=== PATIENT | female | born 1955 | race Caucasian/White ===

== ENCOUNTER 2016-11-20 08:28 | Inpatient (IN) | payer OTHER ==
[~2016-11-20] VITALS: Ht 154.9 cm; Wt 63.1 kg
[~2016-11-20 08:28] MED LIST: NORC7.5T PO; [UNRECOGNIZED DRUG - OTHER]
[2016-11-20 08:30] VITALS: BP 117/78; PULSE 113; RESP 18; TEMP 98.3; O2SAT 100
[2016-11-20 09:00] VITALS: BP 134/91; PULSE 108; RESP 18; TEMP 98.3; O2SAT 98
[2016-11-20 09:31] LABS: AUTOMATED NEUTROPHIL # 6.1 TH/MM3 (1.8-7.7); BASOPHIL # 0.1 TH/MM3 (0-0.2); BASOPHIL % 0.7 % (0.0-2.0); EOSINOPHIL # 0.1 TH/MM3 (0-0.4); HEMATOCRIT 45.8 % (35.0-46.0); HEMO FLAGS DIFF FINAL; LYMPH % 10.4 % (9.0-44.0); LYMPHOCYTE # 0.8 TH/MM3 (1.0-4.8); MEAN CELL VOLUME 95.9 FL (80.0-100.0); MEAN CORPUSCULAR HEMOGLOBIN 31.6 PG (27.0-34.0); MONO % 5.5 % (0.0-8.0); NEUT % 82.4 % (16.0-70.0); PLATELET COUNT 161 TH/MM3 (150-450); RED BLOOD COUNT 4.77 MIL/MM3 (4.00-5.30); RED CELL DISTRIBUTION WIDTH 13.4 % (11.6-17.2); WHITE BLOOD COUNT 7.4 TH/MM3 (4.0-11.0)
[2016-11-20 09:41] LABS: ANION GAP 7 MEQ/L (5-15); AST (GOT) 21 U/L (15-37); BLOOD UREA NITROGEN 9 MG/DL (7-18); CHLORIDE 100 MEQ/L (98-107); GLOMERULAR FILTRATION RATE 47 ML/MIN (>89); POTASSIUM 5.1 MEQ/L (3.5-5.1); SODIUM (NA) 137 MEQ/L (136-145)
[2016-11-20 09:43] LABS: ALKALINE PHOSPHATASE 73 U/L (45-117); ALT (GPT) 39 U/L (10-53); TOTAL BILIRUBIN ADULT 0.4 MG/DL (0.2-1.0)
[2016-11-20] MEDS ORDERED: TETANUS/DIPHTHERIA TOXOID ADULT 0.5 ML VIAL IM ONE (12:30)
--- NOTE | 2016-11-20 12:30 | PD ---
HPI Chief Complaint: Psychiatric Symptoms Time Seen by Provider: 12:30 Travel History International Travel<30 days: No Contact w/Intl Traveler<30days: No Traveled to known affect area: No History of Present Illness HPI 60-year-old female presents to the emergency department voluntarily for psychiatric evaluation. Patient states she has been depressed for "a long as I can remember". She states that things that she has done wrong in the past keep going through her head which she states is hearing voices. She states that "I am a bad person". Patient will not elaborate on what she has done in the past. She states that she has thoughts of hurting herself. She reports taking a bottle of an [id number] sleeping pill 2 days ago, but states "they did nothing to me". When asked to have Tylenol or aspirin in it, she says "I don't think so, but I don't know". Patient denies any medical problems or taking any prescribed medications. Patient states that she drinks alcohol approximately 3- 4 days a week and states she can drink "up to 7 beers at a time". She denies any tobacco use, but does smoke marijuana. When asked the patient has any medical complaints, she states that she tripped and fell 2 days ago and has ecchymosis and abrasion to her left anterior knee. She also has a small abrasion to her right anterior knee. She denies any loss of range of motion, but states she has pain to the left knee. She denies hitting her head or losing consciousness. She denies any neck pain or back pain. No chest pain or abdominal pain. No nausea or vomiting. She states her tetanus immunization is not up-to-date. PFSH Past Medical History Anemia: Yes Anxiety: No Depression: No Cancer: No Cardiovascular Problems: No Endocrine: No Genitourinary: No Immune Disorder: No Musculoskeletal: No Neurologic: No Psychiatric: No Reproductive: No Respiratory: No Past Surgical History Abdominal Surgery: No Cardiac Surgery: No Section: Yes Ear Surgery: No Endocrine Surgery: No Eye Surgery: No Genitourinary Surgery: No Gynecologic Surgery: Yes (D&C) Oral Surgery: No Pacemaker: No Thoracic Surgery: No Social History Alcohol Use: Yes (3-4x weekly) Tobacco Use: No Substance Use: Yes (marijuana) Allergies-Medications (Allergen,Severity, Reaction): Coded Allergies: Codeine (Verified Allergy, Severe, VOMITING, 09/12/12) Reported Meds & Prescriptions Reported Meds & Active Scripts Active Reported [place] 7.5/325 (Hydrocodone-Acetaminophen) 7.5 Mg/325 Mg Tab 1-2 Tab PO Q4HPRN [Estrovin] Review of Systems Except as stated in HPI: all other systems reviewed are Neg General / Constitutional: No: Fever, Chills Eyes: No: Foreign Body Sensation HENT: No: Headaches, Lightheadedness Cardiovascular: No: Chest Pain or Discomfort, Irregular Rhythm, Tachycardia, Diaphoresis Respiratory: No: Cough, Shortness of Breath, Wheezing Gastrointestinal: No: Nausea, Vomiting, Abdominal Pain, Hematemesis, Hematochezia, Constipation Genitourinary: No: Dysuria Skin: Positive Other (abrasion) Neurologic: No: Weakness, Dizziness, Syncope, Headache, Change in Mentation Psychiatric: Positive: Depression, Suicidal Ideations Physical Exam Narrative GENERAL: Well-developed well-nourished female patient, afebrile. SKIN: Warm and dry. Patient has superficial abrasion noted to the right and left anterior knees. She has ecchymosis to the left anterior knee as well. HEAD: Normocephalic. Atraumatic. EYES: No scleral icterus. No injection or drainage. NECK: Supple, trachea midline. No JVD or lymphadenopathy. CARDIOVASCULAR: Regular rate and rhythm without murmurs, gallops, or rubs. RESPIRATORY: Breath sounds equal bilaterally. No accessory muscle use. Lungs sounds are clear to auscultation. GASTROINTESTINAL: Abdomen soft, non-tender, nondistended. MUSCULOSKELETAL: No cyanosis, or edema. Patient has full flexion-extension of the left knee, but has tenderness to palpation over the left anterior knee. BACK: Nontender without obvious deformity. No CVA tenderness. PSYCHIATRIC: No delusional thought processes. No hallucinations. Patient is tearful. Data Data Last Documented VS Vital Signs Date Time Temp Pulse Resp B/P Pulse Ox O2 Delivery O2 Flow Rate FiO2 11/20/16 09:00 98.3 108 18 134/91 98 Room Air Orders Complete Blood Count With Diff (11/20/16 08:59) Comprehensive Metabolic Panel (11/20/16 08:59) Urinalysis - C+S If Indicated (11/20/16 08:59) Psych Screen (11/20/16 08:59) Drug Screen, Random Urine (11/20/16 08:59) Alcohol (Ethanol) (11/20/16 08:59) Diet Regular Basic (11/20/16 Lunch) Knee, Complete (4vws) (11/20/16 ) Salicylates (Aspirin) (11/20/16 12:26) Tetanus/Diphtheria Tox Adult (Tetanus/Di (11/20/16 12:30) Tylenol (Acetaminophen) (11/20/16 09:12) Admit To Inpatient Psych (11/20/16 ) Vital Signs (Adult) RUFINO.Q12H.E (11/20/16 12:36) Activity Oob Ad Kirsten (11/20/16 12:36) Lorazepam (Ativan) (11/20/16 12:45) Lorazepam Inj (Ativan Inj) (11/20/16 12:45) Lorazepam (Ativan) (11/20/16 12:45) Lorazepam Inj (Ativan Inj) (11/20/16 12:45) Acetaminophen (Tylenol) (11/20/16 12:45) Magnesium Hydroxide Liq (Milk Of Magnesi (11/20/16 12:45) Al-Mag Hy-Si 40-40-4 Mg/Ml Liq (Mag-Al P (11/20/16 12:45) Nicotine 21 Mg Patch.24 Hr (Habitrol 21 (11/20/16 12:45) Basic Metabolic Panel (Bmp) (11/21/16 06:00) Lipid Profile (11/21/16 06:00) Hemoglobin (Hgb) A1c (11/21/16 06:00) Admit To Inpatient Psych (11/20/16 ) Vital Signs (Adult) RUFINO.Q12H.E (11/20/16 12:41) Activity Oob Ad Kirsten (11/20/16 12:41) Admit Order (Ed Use Only) (11/20/16 12:41) Labs Laboratory Tests Test 11/20/16 11/20/16 09:12 12:15 White Blood Count 7.4 TH/MM3 Red Blood Count 4.77 MIL/MM3 Hemoglobin 15.1 GM/DL Hematocrit 45.8 % Mean Corpuscular Volume 95.9 FL Mean Corpuscular Hemoglobin 31.6 PG Mean Corpuscular Hemoglobin 33.0 % Concent Red Cell Distribution Width 13.4 % Platelet Count 161 TH/MM3 Mean Platelet Volume 9.3 FL Neutrophils (%) (Auto) 82.4 % Lymphocytes (%) (Auto) 10.4 % Monocytes (%) (Auto) 5.5 % Eosinophils (%) (Auto) 1.0 % Basophils (%) (Auto) 0.7 % Neutrophils # (Auto) 6.1 TH/MM3 Lymphocytes # (Auto) 0.8 TH/MM3 Monocytes # (Auto) 0.4 TH/MM3 Eosinophils # (Auto) 0.1 TH/MM3 Basophils # (Auto) 0.1 TH/MM3 CBC Comment DIFF FINAL Differential Comment Sodium Level 137 MEQ/L Potassium Level 5.1 MEQ/L Chloride Level 100 MEQ/L Carbon Dioxide Level 30.0 MEQ/L Anion Gap 7 MEQ/L Blood Urea Nitrogen 9 MG/DL Creatinine 1.18 MG/DL Estimat Glomerular Filtration 47 ML/MIN Rate Random Glucose 157 MG/DL Calcium Level 9.5 MG/DL Total Bilirubin 0.4 MG/DL Aspartate Amino Transf 21 U/L (AST/SGOT) Alanine Aminotransferase 39 U/L (ALT/SGPT) Alkaline Phosphatase 73 U/L Total Protein 7.9 GM/DL Albumin 4.3 GM/DL Salicylates Level LESS THAN 1.7 MG/DL Acetaminophen Level LESS THAN 2.0 MCG/ML Ethyl Alcohol Level LESS THAN 3 MG/DL Urine Color LIGHT-YELLOW Urine Turbidity CLEAR Urine pH 5.5 Urine Specific [place] 1.003 Urine Protein NEG mg/dL Urine Glucose (UA) NEG mg/dL Urine Ketones NEG mg/dL Urine Occult Blood NEG Urine Nitrite NEG Urine Bilirubin NEG Urine Urobilinogen LESS THAN 2.0 MG/DL Urine Leukocyte Esterase NEG Urine RBC 1 /hpf Urine WBC 1 /hpf Urine Bacteria RARE /hpf Urine Mucus FEW /lpf Microscopic Urinalysis Comment CULT NOT INDICATED Urine Opiates Screen NEG Urine Barbiturates Screen NEG Urine Amphetamines Screen NEG Urine Benzodiazepines Screen NEG Urine Cocaine Screen NEG Urine Cannabinoids Screen NEG MDM Medical Decision Making Medical Screen Exam Complete: Yes Emergency Medical Condition: Yes Medical Record Reviewed: Yes Interpretation(s) left knee x-ray - CONCLUSION: Negative exam. Differential Diagnosis Depression versus anxiety versus suicidal ideation versus bipolar disorder versus schizophrenia versus knee contusion versus knee fracture versus overdose Narrative Course 60-year-old female presents to the emergency department for evaluation depression and suicidal ideations. She does state that she took a bottle of some [id number]-[id number] sleeping aid 2 days ago, but states that she feels fine after taking it. Patient does report ecchymosis and abrasion to the left anterior knee and mild pain as well. Patient is slightly tachycardic on exam, but most likely due to anxiety. Tetanus immunization is updated. X-ray of the left knee is ordered and pending. CBC, CMP, alcohol level, UDS, UA, salicylate level, Tylenol level are ordered and pending. CBC shows no acute abnormalities. CMP shows creatinine 1.18, glucose 157. Alcohol level is less than 3. UDS is negative. Salicylate level is less than 1.7. Acetaminophen level is less than 2.0. UA shows no acute infection. X- ray of the left knee is negative. Patient is medically cleared for psychiatric screening and disposition. Mental health screening discussed with the patient. Psychiatric screen ordered. Additional Instructions: Patient is medically cleared for psychiatric screening and disposition. Condition: Stable Carmenza Pinzon Nov 20, 2016 12:30
[2016-11-20] MEDS ORDERED: LORazepam 2 MG/ML VIAL IM PRN ×2 (12:45)
[2016-11-20] MEDS ORDERED: ALUMINUM/MAGNESIUM/SIMETH 30 ML CUP PO PRN (12:45)
[2016-11-20] MEDS ORDERED: MAGNESIUM HYDROXIDE SUSP 30 ML CUP PO PRN (12:45)
[2016-11-20] MEDS ORDERED: ACETAMINOPHEN 325 MG TAB PO PRN (12:45)
[2016-11-20] MEDS ORDERED: LORazepam 0.5 MG TAB PO PRN (12:45)
[2016-11-20 12:50] LABS: ACETAMINOPHEN LESS THAN 2.0 MCG/ML (10.0-30.0)
[2016-11-20 12:50] LABS: BACTERIA, URINE RARE /hpf; BLOOD, URINE NEG (NEG); GLUCOSE,URINE NEG (NEG); KETONE, URINE NEG (NEG); MUCUS URINE FEW /lpf (OCC); NITRITE,URINE NEG (NEG); PH, URINE 5.5 (5.0-8.5); URINE COLOR LIGHT-YELLOW (YELLW/STRAW)
[2016-11-20 12:51] LABS: COMMENT (UR) CULT NOT INDICATED; CULTURE IF INDICATED CULT NOT INDICATED
[2016-11-20 12:57] LABS: AMPHETAMINE, URINE NEG (NEG); BARBITURATES, URINE NEG (NEG); COCAINE, URINE NEG (NEG)
[2016-11-20] MEDS: NICOTINE 21 MG/24 HR PATCH T-DERMAL SCH (13:15)
[2016-11-20 14:06] VITALS: BP 134/91; PULSE 108; RESP 18; O2SAT 98
--- NOTE | 2016-11-20 14:25 | RADRPT ---
EXAM DATE/TIME: 11/20/2016 13:05 [facility] COMPARISON: No previous studies available for comparison. INDICATIONS : Left knee pain after falling. Pt. has skin abrasions. MEDICAL HISTORY : None. SURGICAL HISTORY : None. ENCOUNTER: Initial ACUITY: 3 days PAIN SCORE: 0/10 LOCATION: Left knee. FINDINGS: Four view examination of the left knee demonstrates no evidence of fracture or dislocation. Bony min eralization is normal. The articular surfaces are intact. The suprapatellar soft tissues have a nor mal configuration. CONCLUSION: Negative exam. Ej Nam MD on November 20, 2016 at 14:23 Board Certified Radiologist. This report was verified electronically.
[2016-11-20 15:19] VITALS: BP 142/82; PULSE 88; RESP 18; TEMP 98.1; O2SAT 96
[2016-11-20] MEDS: LORazepam 1 MG TAB PO PRN ×2 (16:05→21:35)
[2016-11-20 17:29] VITALS: BP 124/77; PULSE 100; RESP 16; TEMP 97.5; O2SAT 98
[2016-11-21 04:00] VITALS: BP 153/89; PULSE 87; RESP 18; TEMP 98.3; O2SAT 94
[2016-11-21 08:17] LABS: ANION GAP 5 MEQ/L (5-15); BICARBONATE 31.6 MEQ/L (21.0-32.0); BLOOD UREA NITROGEN 8 MG/DL (7-18); CHLORIDE 103 MEQ/L (98-107); GLOMERULAR FILTRATION RATE 75 ML/MIN (>89); HDL CHOLESTEROL 114.3 MG/DL (40.0-60.0); LDL CHOLESTEROL 108 MG/DL (0-99); POTASSIUM 4.5 MEQ/L (3.5-5.1); SODIUM (NA) 140 MEQ/L (136-145)
[2016-11-21] MEDS: NICOTINE 21 MG/24 HR PATCH T-DERMAL SCH (08:33)
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
[2016-11-21] MEDS: LORazepam 1 MG TAB PO PRN ×2 (13:39→20:55)
[2016-11-21 17:06] LABS: HEMOGLOBIN A1a 1.1 %; HEMOGLOBIN A1b 1.5 %; HEMOGLOBIN Ao 85.8 %; HEMOGLOBIN P3 3.7 %
[2016-11-21 19:34] VITALS: BP 146/69; PULSE 90; RESP 18; TEMP 98.3; O2SAT 99
[2016-11-21] MEDS: FLUoxetine HCL 10 MG CAP PO SCH (20:40)
[2016-11-22 06:28] VITALS: BP 105/71; PULSE 110; RESP 18; O2SAT 95
[2016-11-22] MEDS: NICOTINE 21 MG/24 HR PATCH T-DERMAL SCH (09:00)
--- NOTE | 2016-11-22 14:54 | HHI.PYPN ---
Subjective Remarks Continues to be depressed and is tolerating Prozac adequately thus far. Anxiety is helped by Ativan. Continues to have obsessive thoughts and suicidal thoughts. Review of Systems Except as stated in HPI: all other systems reviewed are Neg Objective Alert: Yes [place]: Person, Place, Date, Situation Mood: Calm, Depressed Affect: Restricted Memory Intact: Immediate, Recent, Remote Hallucinations: Auditory Delusions: No Delusion Type: Other Suicidal: Ideation Homicidal: Ideation Insight/Judgement Impaired. Vitals/IOs Vital Signs Date Time Temp Pulse Resp B/P Pulse Ox O2 Delivery O2 Flow Rate FiO2 11/22/16 06:28 110 18 105/71 95 11/21/16 19:34 98.3 11/20/16 14:06 Room Air Intake and Output 11/21/16 11/21/16 11/22/16 08:00 16:00 00:00 Intake Total 240 ml 360 ml Balance 240 ml 360 ml Assessment & Plan Problem List: (1) Severe major depression, single episode, with psychotic features ICD Code: F32.3 Assessment & Plan Estimated LOS: 5 days. Days patient continues to be markedly depressed and obsessive with auditory hallucinations. Will plan to increase dose of Prozac tomorrow and consider adding mood stabilizing antipsychotic. Justification for Cont. Inpt. Suicidal thoughts and unable to care for self. Jaleel Ward MD Nov 22, 2016 14:54
[2016-11-22 19:02] VITALS: BP 126/88; PULSE 87; RESP 16; TEMP 97.7; O2SAT 96
[2016-11-22] MEDS: FLUoxetine HCL 10 MG CAP PO SCH (20:44)
[2016-11-22] MEDS: LORazepam 1 MG TAB PO PRN (20:46)
[2016-11-23 06:11] VITALS: BP 135/86; PULSE 78; RESP 16; TEMP 98.1; O2SAT 99
[2016-11-23] MEDS: NICOTINE 21 MG/24 HR PATCH T-DERMAL SCH (09:00)
[2016-11-23] MEDS: LORazepam 1 MG TAB PO PRN (09:21)
[2016-11-23] MEDS ORDERED: LORA-474 PO (14:11)
[2016-11-23] MEDS ORDERED: FLUO-1 PO (14:11)
--- NOTE | 2016-11-23 14:16 | HHI.DS ---
Psychiatry Discharge Summary Inpatient Psychiatric care?: Yes Advance Directive: No Reason Not Provided: NONE Mental Health AdvanceDirective: No Health Care Proxy: No Admission Admission Date Nov 20, 2016 at 12:45 Admission Diagnosis: (1) Severe major depression, single episode, with psychotic features ICD Code: F32.3 Brief History This is a 60-year-old female with a multiple month history of depression. The patient admits to symptoms of depressed mood, anhedonia, insomnia, diminished appetite, extreme feelings of guilt and remorse, feelings of hopelessness and helplessness, suicidal ideation, social withdrawal, markedly diminished energy, as well as auditory hallucinations which are very critical of her and delusions that she is a very sinful person. She apparently overdosed on [id number] sleeping pills 2 days before her admission. She is unable to provide information about these pills. At the present time, she is admitting to ruminating thoughts and auditory hallucinations which tell her that she is a evil person and deserves to be punished. She has admitted to one staff member that she cheated on her years ago and this continues to haunt her. She also indicates that she has a very perverted mind and she has explicit sexual thoughts which make her a "dirty" person. Patient's was contacted and does describe his as having increasing depression over the last several months. He has been to her for 33 years. He works at [employer]. She is retired. 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 She feels her only child, a 27-year-old son, keeps her away from his daughter, her grandbaby. She feels this is also a punishment. She has been self-medicating several times per week with alcohol up to 6 or 7 beers at a time. She relates this has been the only method that provides her with temporary relief Tobacco Use In Past 30 Days: Cigarettes But Not Daily Alcohol Use: 4 or More Times Per Week Hospital Course Did well during her hospital course. Participated actively in individual and group therapies. No procedures were performed. However she was started on Prozac and Ativan and did well on this combination of medications. Results Blood Pressure 135 / 86 Vital Signs Date Time Temp Pulse Resp B/P Pulse Ox O2 Delivery O2 Flow Rate FiO2 11/23/16 06:11 98.1 78 16 135/86 99 11/20/16 14:06 Room Air Laboratory Tests Test 11/21/16 07:13 Estimat Glomerular Filtration 75 ML/MIN (>89) Rate Cholesterol Level 234 MG/DL (120-200) LDL Cholesterol 108 MG/DL (0-99) HDL Cholesterol 114.3 MG/DL (40.0-60.0) Laboratory Results Test 11/21/16 07:13 Hemoglobin A1c 5.5 % (4.3-6.0) Triglycerides Level 59 MG/DL (42-150) Cholesterol Level 234 MG/DL (120-200) LDL Cholesterol 108 MG/DL (0-99) HDL Cholesterol 114.3 MG/DL (40.0-60.0) Summary of Procedures None Imaging Last Impressions Knee X-Ray 11/20/16 0000 Signed Impressions: Service Date/Time: Sunday, November 20, 2016 13:05 - CONCLUSION: Negative exam. Ej Nam MD Pending results at discharge: No Medications # of Antipsychotic meds at D/C: 0 Approp Antipsych med options 1 - Minimum of three failed multiple trials of monotherapy. 2 - Documented plan to taper to monotherapy due to previous use of multiple meds OR cross-taper in progress at D/C. 3 - Documentation of augmentation of Clozapine. 4 - Justification other than those listed in allowable values 1-3, document here : Discharge Discharge Date: Nov 23, 2016 Discharge Diagnosis: (1) Severe major depression, single episode, with psychotic features Diagnosis: Principal ICD Code: F32.3 Mental Status Exam at Disch At the time of discharge she was verbally tonya for safety. No suicidal or homicidal ideation, plan or intent. Mood and affect were significantly improved. Cognition was intact. No psychotic symptoms. Pt Condition on Discharge: Stable Discharge Disposition: Discharge Home Discharge Instructions Diet Instructions: As Tolerated, No Restrictions Activities you can perform: Regular-No Restrictions Discharge Time <= 30 minutes Discharge/Advance Care Plan Health Problems: (1) Severe major depression, single episode, with psychotic features Goals to promote your health * To prevent worsening of your condition and complications * To maintain your health at the optimal level Directions to meet your goals Take your medications as prescribed Follow your dietary instruction Follow activity as directed Keep your appointments as scheduled Take your immunizations and boosters as scheduled If your symptoms worsen call your PCP, if no PCP go to Urgent Care Center or Emergency Room For 25/03 questions related to your inpatient stay or results of tests pending at discharge, please contact Dr. Jaleel Ward at Smoking is Dangerous to Your Health. Avoid second hand smoking Jaleel Ward MD Nov 23, 2016 14:16
== END 2016-11-23 18:15 | disposition home or self-care (01) | DRG 885 ==
LOC: NEPJ 08:28 → NEDA 12:45 → H260 14:29
PROVIDERS: ADMIT Psychiatry & Neurology Psychiatry; ATTEND Psychiatry & Neurology Psychiatry
DX: F32.3 Major depressive disorder, single episode, severe with psychotic features (principal); R45.851 Suicidal ideations; F12.90 Cannabis use, unspecified, uncomplicated; G47.00 Insomnia, unspecified; R45.84 Anhedonia; Z91.5 Personal history of self-harm; Z81.8 Family history of other mental and behavioral disorders; S80.212A Abrasion, left knee, initial encounter; Y93.9 Activity, unspecified; Y92.9 Unspecified place or not applicable; Y99.9 Unspecified external cause status; W01.0XXA Fall on same level from slipping, tripping and stumbling without subsequent striking against object, initial encounter
CPT/HCPCS: 73564; 80048; 80053; 80061; 80307; 81001; 83036; 85025; 90471; 90714

== ENCOUNTER 2016-12-19 14:10 | Emergency (ER) | payer OTHER ==
[~2016-12-19] VITALS: Ht 154.9 cm; Wt 63.0 kg
[~2016-12-19 14:10] MED LIST changes: +FLUO-1 PO; +LORA-474 PO
[2016-12-19 14:11] VITALS: BP 155/70; PULSE 80; RESP 20; TEMP 98; O2SAT 99
--- NOTE | 2016-12-19 15:16 | PD ---
Physical Exam Date Seen by Provider: Dec 19, 2016 Time Seen by Provider: 15:10 Narrative Pt is a 61 year old female presenting to the ED for evaluation after taking about 20 fluoxetine 10mg tablets at 0200 this morning. Pt denies any physical complaints. Pt denies intentionally taking too much medicine. Pt was prescribed them on 12/14/16 along with trazodone and hydroxyzine. Pt denies any hx of suicide attempts. Pt reports hearing voices during the night, insomnia, anxiety , and per 's report mild depression. Pt was recently admitted to psych here. Pt states the voices she hears are not telling her to do things. Data Data Last Documented VS Vital Signs Date Time Temp Pulse Resp B/P Pulse Ox O2 Delivery O2 Flow Rate FiO2 12/19/16 14:11 98.0 80 20 155/70 99 Room Air [facility] Supervised Visit with BRYN: Jess Hough Dec 19, 2016 15:16
[2016-12-19 15:49] VITALS: PULSE 76; RESP 16; O2SAT 97
[2016-12-19] MEDS ORDERED: TRAZ50TA12 PO (16:00)
[2016-12-19] MEDS ORDERED: HYDR-3133 PO (16:00)
--- NOTE | 2016-12-19 16:29 | PD ---
HPI Chief Complaint: OD/ Ingestion Time Seen by Provider: 16:24 Travel History International Travel<30 days: No Contact w/Intl Traveler<30days: No Traveled to known affect area: No History of Present Illness HPI 61 year old female presents to the emergency department after she states that she took a handful of fluoxetine 10 mg tablets around 2:30 this morning. She states she woke up and she meant to take one, but poured the bottle in her hand. She apologizes to be multiple times for doing so. She adamantly denies any suicidal or homicidal ideations. Her is at bedside who states that she has not been suicidal and states that she is not worried about it. She reports history of anxiety, depression. She does state that she hears voices. She was recently admitted for psychiatric evaluation. She states she has been doing better since this evaluation. The patient denies any other chronic medical problems. She states she has no medical complaints at this time. She states she has 7 pills of the medicine divider. Therefore, she took between 14 and 21 fluoxetine 10 mg tablets. The patient states she feels fine and has no medical complaints. She does state that she has been having insomnia. Her states that this 7-month-old grandchild has been sick and she is upset about that as well. PFSH Past Medical History Anemia: Yes Anxiety: No Depression: No Cancer: No (per pt`) Cardiovascular Problems: No Cerebrovascular Accident: No Diabetes: No Endocrine: No Genitourinary: No Headaches: No (per pt) Immune Disorder: No Musculoskeletal: No Neurologic: No Reproductive: No Respiratory: No Seizures: No (per pt) Influenza Vaccination: No ?: Not Past Surgical History Abdominal Surgery: No Cardiac Surgery: No Section: Yes Ear Surgery: No Endocrine Surgery: No Eye Surgery: No Genitourinary Surgery: No Gynecologic Surgery: Yes (D&C) Hysterectomy: No Oral Surgery: No Pacemaker: No Thoracic Surgery: No Other Surgery: Yes (RODS/SCREWS IN UPPER LEFT ARM) Social History Alcohol Use: Yes (3-4x weekly) Tobacco Use: No Substance Use: Yes (marijuana) Allergies-Medications (Allergen,Severity, Reaction): Coded Allergies: Codeine (Verified Allergy, Severe, VOMITING, 12/19/16) Reported Meds & Prescriptions Reported Meds & Active Scripts Active Prozac (Fluoxetine HCl) 10 Mg Cap 10 Mg PO HS Reported Hydroxyzine HCl 25 Mg Tab 25 Mg PO TID PRN Trazodone (Trazodone HCl) 50 Mg Tab 50 Mg PO HS [Estrovin] Review of Systems Except as stated in HPI: all other systems reviewed are Neg Physical Exam Narrative GENERAL: Well-nourished, well-developed female patient, ambulatory. Afebrile. SKIN: Focused skin assessment warm/dry. HEAD: Normocephalic. Atraumatic. EYES: No scleral icterus. No injection or drainage. NECK: Supple, trachea midline. No JVD or lymphadenopathy. CARDIOVASCULAR: Regular rate and rhythm without murmurs, gallops, or rubs. RESPIRATORY: Breath sounds equal bilaterally. No accessory muscle use. Lungs sounds are clear to auscultation. GASTROINTESTINAL: Abdomen soft, non-tender, nondistended. MUSCULOSKELETAL: No cyanosis, or edema. PSYCHIATRIC: No delusional thought processes. No hallucinations. Data Data Last Documented VS Vital Signs Date Time Temp Pulse Resp B/P Pulse Ox O2 Delivery O2 Flow Rate FiO2 12/19/16 15:49 76 16 97 12/19/16 14:11 98.0 155/70 Room Air Orders Electrocardiogram (12/19/16 15:16) Complete Blood Count With Diff (12/19/16 15:16) Urinalysis - C+S If Indicated (12/19/16 16:10) Psych Screen (12/19/16 16:10) Drug Screen, Random Urine (12/19/16 16:10) Alcohol (Ethanol) (12/19/16 16:10) Salicylates (Aspirin) (12/19/16 16:10) Tylenol (Acetaminophen) (12/19/16 16:10) Comprehensive Metabolic Panel (12/19/16 16:40) Diet Regular Basic (12/19/16 Dinner) Labs Laboratory Tests Test 12/19/16 12/19/16 16:40 17:55 Urine Color COLORLESS Urine Turbidity CLEAR Urine pH 5.5 Urine Specific [place] 1.001 Urine Protein NEG mg/dL Urine Glucose (UA) NEG mg/dL Urine Ketones NEG mg/dL Urine Occult Blood NEG Urine Nitrite NEG Urine Bilirubin NEG Urine Urobilinogen LESS THAN 2.0 MG/DL Urine Leukocyte Esterase NEG Urine WBC 1 /hpf Urine Squamous Epithelial <1 /hpf Cells Urine Bacteria RARE /hpf Microscopic Urinalysis Comment CULT NOT INDICATED Sodium Level 138 MEQ/L Potassium Level 3.5 MEQ/L Chloride Level 101 MEQ/L Carbon Dioxide Level 25.0 MEQ/L Anion Gap 12 MEQ/L Blood Urea Nitrogen 5 MG/DL Creatinine 0.67 MG/DL Estimat Glomerular Filtration 90 ML/MIN Rate Random Glucose 87 MG/DL Calcium Level 9.4 MG/DL Total Bilirubin 0.4 MG/DL Aspartate Amino Transf 18 U/L (AST/SGOT) Alanine Aminotransferase 33 U/L (ALT/SGPT) Alkaline Phosphatase 68 U/L Total Protein 7.8 GM/DL Albumin 4.2 GM/DL Salicylates Level LESS THAN 1.7 MG/DL Urine Opiates Screen NEG Acetaminophen Level LESS THAN 2.0 MCG/ML Urine Barbiturates Screen NEG Urine Amphetamines Screen NEG Urine Benzodiazepines Screen NEG Urine Cocaine Screen NEG Urine Cannabinoids Screen NEG Ethyl Alcohol Level LESS THAN 3 MG/DL White Blood Count 6.2 TH/MM3 Red Blood Count 4.09 MIL/MM3 Hemoglobin 13.1 GM/DL Hematocrit 37.7 % Mean Corpuscular Volume 92.2 FL Mean Corpuscular Hemoglobin 32.1 PG Mean Corpuscular Hemoglobin 34.8 % Concent Red Cell Distribution Width 12.5 % Platelet Count 185 TH/MM3 Mean Platelet Volume 9.0 FL Neutrophils (%) (Auto) 79.5 % Lymphocytes (%) (Auto) 12.2 % Monocytes (%) (Auto) 7.1 % Eosinophils (%) (Auto) 0.7 % Basophils (%) (Auto) 0.5 % Neutrophils # (Auto) 4.9 TH/MM3 Lymphocytes # (Auto) 0.8 TH/MM3 Monocytes # (Auto) 0.4 TH/MM3 Eosinophils # (Auto) 0.0 TH/MM3 Basophils # (Auto) 0.0 TH/MM3 CBC Comment DIFF FINAL Differential Comment MDM Medical Decision Making Medical Screen Exam Complete: Yes Emergency Medical Condition: Yes Medical Record Reviewed: Yes Differential Diagnosis Unintentional overdose versus intentional overdose versus psychosis versus depression versus anxiety Narrative Course 61-year-old female presents to the emergency department for evaluation after she states she took a handful of fluoxetine at 2:30 this morning. She has no medical complaints at this time and states she feels fine. CBC, CMP, alcohol level, salicylate level, Tylenol level, urine drug screen are ordered and pending. EKG shows sinus rhythm, heart rate 74, no acute ST changes. CBC shows no acute abnormality. CMP is unremarkable. Salicylate level is less than 1.7. Tylenol level is less than 2.0. Alcohol level is less than 3. UDS is negative. UA is negative for acute infection. Patient states this was not an intentional overdose and her agrees. She has no suicidal or homicidal ideation. Psychiatric screen is ordered due to hearing voices. I do not believe the patient needs Godinez act criteria at this time. Patient is medically cleared for psychiatric screening and disposition. Mental health screening discussed with the patient. Psychiatric screen ordered. Psychiatric nurse saw the patient and performed psychiatric evaluation and believes she is safe to go home with her . I agree with this. She is to return immediately for any worsening symptoms. Diagnosis Primary Impression: Overdose of antidepressant Qualified Code: T43.201A - Overdose of antidepressant, accidental or unintentional, initial encounter Additional Impression: Depression Qualified Code: F32.9 - Depression, unspecified depression type Patient Instructions: Adult Overdose (ED), General Instructions Additional Instructions: Follow-up with your psychiatrist. Return to the emergency department for any acute worsening of symptoms. Med/Other Pt SpecificInfo: No Change to Meds Disposition: 01 DISCHARGE HOME Condition: Stable Carmenza Pinzon Dec 19, 2016 16:29
[2016-12-19 17:07] LABS: BACTERIA, URINE RARE /hpf; BLOOD, URINE NEG (NEG); COMMENT (UR) CULT NOT INDICATED; CULTURE IF INDICATED CULT NOT INDICATED; GLUCOSE,URINE NEG (NEG); KETONE, URINE NEG (NEG); NITRITE,URINE NEG (NEG); PH, URINE 5.5 (5.0-8.5); SQUAMOUS EPITHELIAL CELL URINE <1 /hpf (0-5); URINE COLOR COLORLESS (YELLW/STRAW)
[2016-12-19 17:08] LABS: ACETAMINOPHEN LESS THAN 2.0 MCG/ML (10.0-30.0)
[2016-12-19 17:10] LABS: AMPHETAMINE, URINE NEG (NEG); BARBITURATES, URINE NEG (NEG); COCAINE, URINE NEG (NEG)
[2016-12-19 17:34] LABS: ALT (GPT) 33 U/L (10-53); AST (GOT) 18 U/L (15-37); BLOOD UREA NITROGEN 5 MG/DL (7-18); GLOMERULAR FILTRATION RATE 90 ML/MIN (>89)
[2016-12-19 17:35] LABS: ALKALINE PHOSPHATASE 68 U/L (45-117); TOTAL BILIRUBIN ADULT 0.4 MG/DL (0.2-1.0)
[2016-12-19 18:00] LABS: ANION GAP 12 MEQ/L (5-15); CHLORIDE 101 MEQ/L (98-107); POTASSIUM 3.5 MEQ/L (3.5-5.1); SODIUM (NA) 138 MEQ/L (136-145)
[2016-12-19 18:04] LABS: AUTOMATED NEUTROPHIL # 4.9 TH/MM3 (1.8-7.7); BASOPHIL % 0.5 % (0.0-2.0); EOSINOPHIL % 0.7 % (0.0-4.0); HEMATOCRIT 37.7 % (35.0-46.0); HEMO FLAGS DIFF FINAL; LYMPH % 12.2 % (9.0-44.0); LYMPHOCYTE # 0.8 TH/MM3 (1.0-4.8); MEAN CELL VOLUME 92.2 FL (80.0-100.0); MEAN CORPUSCULAR HEMOGLOBIN 32.1 PG (27.0-34.0); MEAN CORPUSCULAR HGB CONC 34.8 % (32.0-36.0); MONO % 7.1 % (0.0-8.0); NEUT % 79.5 % (16.0-70.0); PLATELET COUNT 185 TH/MM3 (150-450); RED BLOOD COUNT 4.09 MIL/MM3 (4.00-5.30); RED CELL DISTRIBUTION WIDTH 12.5 % (11.6-17.2); WHITE BLOOD COUNT 6.2 TH/MM3 (4.0-11.0)
--- NOTE | 2016-12-20 12:29 | EKG ---
Date Performed: 12/19/2016 Time Performed: 16:05:18 PTAGE: 61 years EKG: Sinus rhythm WITH SHORT TN INTERVAL BORDERLINE ECG Compared to prior tracing no significant change PREVIOUS TRACING : 09/11/2012 15.02 DOCTOR: Eder Caicedo Interpretating Date/Time 12/20/2016 12:28:16
== END 2016-12-19 20:59 | disposition home or self-care (01) ==
LOC: NEPD 14:10
DX: T43.224A Poisoning by selective serotonin reuptake inhibitors, undetermined, initial encounter (principal); F32.9 Major depressive disorder, single episode, unspecified; G47.00 Insomnia, unspecified; F12.90 Cannabis use, unspecified, uncomplicated; R94.31 Abnormal electrocardiogram [ECG] [EKG]
CPT/HCPCS: 80053; 80307; 81001; 85025; 93005

== ENCOUNTER 2016-12-23 19:16 | Inpatient (IN) | payer OTHER ==
[~2016-12-23] VITALS: Ht 154.9 cm; Wt 60.0 kg
[~2016-12-23 19:16] MED LIST changes: +HYDR-3133 PO; -LORA-474 PO; -NORC7.5T PO; +TRAZ50TA12 PO
[2016-12-23 19:18] VITALS: BP 165/86; PULSE 88; RESP 16; TEMP 98.6; O2SAT 99
[2016-12-23] MEDS ORDERED: TETANUS/DIPHTHERIA TOXOID ADULT 0.5 ML VIAL IM ONE (21:00)
[2016-12-23 21:35] LABS: AUTOMATED NEUTROPHIL # 5.7 TH/MM3 (1.8-7.7); BASOPHIL % 0.6 % (0.0-2.0); EOSINOPHIL # 0.1 TH/MM3 (0-0.4); EOSINOPHIL % 0.8 % (0.0-4.0); HEMATOCRIT 36.8 % (35.0-46.0); HEMO FLAGS DIFF FINAL; LYMPH % 17.6 % (9.0-44.0); LYMPHOCYTE # 1.4 TH/MM3 (1.0-4.8); MEAN CELL VOLUME 90.7 FL (80.0-100.0); MEAN CORPUSCULAR HEMOGLOBIN 31.4 PG (27.0-34.0); MEAN CORPUSCULAR HGB CONC 34.6 % (32.0-36.0); MONO % 8.7 % (0.0-8.0); NEUT % 72.3 % (16.0-70.0); PLATELET COUNT 212 TH/MM3 (150-450); RED BLOOD COUNT 4.06 MIL/MM3 (4.00-5.30); RED CELL DISTRIBUTION WIDTH 12.4 % (11.6-17.2); WHITE BLOOD COUNT 7.9 TH/MM3 (4.0-11.0)
--- NOTE | 2016-12-23 22:50 | PD ---
Physical Exam Date Seen by Provider: Dec 23, 2016 Time Seen by Provider: 22:49 Narrative For full history and physical examination please see previous provider's note. I was asked or per laceration to left forearm Data Data Last Documented VS Vital Signs Date Time Temp Pulse Resp B/P Pulse Ox O2 Delivery O2 Flow Rate FiO2 12/23/16 19:18 98.6 88 16 165/86 99 Orders Complete Blood Count With Diff (12/23/16 21:00) Comprehensive Metabolic Panel (12/23/16 21:00) Psych Screen (12/23/16 21:00) Drug Screen, Random Urine (12/23/16 21:00) Alcohol (Ethanol) (12/23/16 21:00) Salicylates (Aspirin) (12/23/16 21:00) Tylenol (Acetaminophen) (12/23/16 21:00) Tetanus/Diphtheria Tox Adult (Tetanus/Di (12/23/16 21:00) Labs Laboratory Tests Test 12/23/16 21:00 White Blood Count 7.9 TH/MM3 Red Blood Count 4.06 MIL/MM3 Hemoglobin 12.7 GM/DL Hematocrit 36.8 % Mean Corpuscular Volume 90.7 FL Mean Corpuscular Hemoglobin 31.4 PG Mean Corpuscular Hemoglobin 34.6 % Concent Red Cell Distribution Width 12.4 % Platelet Count 212 TH/MM3 Mean Platelet Volume 8.9 FL Neutrophils (%) (Auto) 72.3 % Lymphocytes (%) (Auto) 17.6 % Monocytes (%) (Auto) 8.7 % Eosinophils (%) (Auto) 0.8 % Basophils (%) (Auto) 0.6 % Neutrophils # (Auto) 5.7 TH/MM3 Lymphocytes # (Auto) 1.4 TH/MM3 Monocytes # (Auto) 0.7 TH/MM3 Eosinophils # (Auto) 0.1 TH/MM3 Basophils # (Auto) 0.0 TH/MM3 CBC Comment DIFF FINAL Differential Comment Salicylates Level LESS THAN 1.7 MG/DL [facility] Medical Record Reviewed: Yes Supervised Visit with BRYN: Yes Procedures Procedure Narrative LACERATION LOCATION: Left forearm LENGTH: 2 and half centimeters NUMBER OF STITCHES/BELEM: 11 stitches REPAIR: The area of the laceration was prepped with Betadine and sterilely draped. The laceration was infiltrated with 1% lidocaine with epi. The wound was copiously irrigated and explored without evidence of foreign body, tendon injury or neurovascular injury. The wound was closed using 4-0 Prolene. This was a 1 layer repair. A sterile dressing was applied. The patient was advised to keep the dressing clean and dry. Patient tolerated the procedure well. Jess Barber [facility] Dec 23, 2016 22:50
[2016-12-23 23:48] LABS: ACETAMINOPHEN LESS THAN 2.0 MCG/ML (10.0-30.0); ALKALINE PHOSPHATASE 64 U/L (45-117); ALT (GPT) 33 U/L (10-53); ANION GAP 12 MEQ/L (5-15); AST (GOT) 13 U/L (15-37); BICARBONATE 26.8 MEQ/L (21.0-32.0); BLOOD UREA NITROGEN 9 MG/DL (7-18); CHLORIDE 99 MEQ/L (98-107); GLOMERULAR FILTRATION RATE 100 ML/MIN (>89); SODIUM (NA) 138 MEQ/L (136-145); TOTAL BILIRUBIN ADULT 0.5 MG/DL (0.2-1.0)
[2016-12-23 23:51] LABS: POTASSIUM 2.9 MEQ/L (3.5-5.1)
[2016-12-24] MEDS ORDERED: POTASSIUM CHLORIDE 20 MEQ CONTROLLED RELEASE TAB PO ONE (00:15)
--- NOTE | 2016-12-24 00:22 | PD ---
HPI Chief Complaint: Suicide Ideation/Attempt Time Seen by Provider: 20:27 Travel History International Travel<30 days: No Contact w/Intl Traveler<30days: No Traveled to known affect area: No History of Present Illness HPI The patient is 61 years old. She reports auditory hallucinations. They are becoming more loud and frequent evidently causing her great distress. The patient began attempting to harm herself by stabbing left and right wrists with a parous scissors. To me the patient reports her medications were changed days prior but does not recall the specifics. The voices tell her to hurt herself. The had been keeping an an eye on her daily for the past few days however today he went to work and then she began to cut her wrists she is was at home alone. She also reports insomnia. PFSH Past Medical History Anemia: Yes Anxiety: No Depression: No Cancer: No (per pt`) Cardiovascular Problems: No Cerebrovascular Accident: No Diabetes: No Endocrine: No Genitourinary: No Headaches: No (per pt) Immune Disorder: No Musculoskeletal: No Neurologic: No Reproductive: No Respiratory: No Seizures: No (per pt) ?: Not Past Surgical History Abdominal Surgery: No Cardiac Surgery: No Section: Yes Ear Surgery: No Endocrine Surgery: No Eye Surgery: No Genitourinary Surgery: No Gynecologic Surgery: Yes (D&C) Hysterectomy: No Oral Surgery: No Pacemaker: No Thoracic Surgery: No Other Surgery: Yes (RODS/SCREWS IN UPPER LEFT ARM) Social History Alcohol Use: No Tobacco Use: No Substance Use: No Allergies-Medications (Allergen,Severity, Reaction): Coded Allergies: Codeine (Verified Allergy, Severe, VOMITING, 12/23/16) Reported Meds & Prescriptions Reported Meds & Active Scripts Active Prozac (Fluoxetine HCl) 10 Mg Cap 10 Mg PO HS Reported Hydroxyzine HCl 25 Mg Tab 25 Mg PO TID PRN Trazodone (Trazodone HCl) 50 Mg Tab 50 Mg PO HS Review of Systems Except as stated in HPI: all other systems reviewed are Neg General / Constitutional: No: Fever Physical Exam Narrative GENERAL: 61-year-old female pleasant well-nourished well-developed SKIN: Focused skin assessment warm/dry. There is approximately 8 cm laceration by 1 cm laceration left middle portion of the DRUJ. Along the right DRUJ there are multiple puncture wounds from the tips of scissors. There is no laceration amenable to repair. There is intact vasculature in the upper extremities. HEAD: Atraumatic. Normocephalic. EYES: Pupils equal and round. No scleral icterus. No injection or drainage. ENT: No nasal bleeding or discharge. Mucous membranes pink and moist. NECK: Trachea midline. No JVD. CARDIOVASCULAR: Regular rate and rhythm. No murmur appreciated. RESPIRATORY: No accessory muscle use. Clear to auscultation. Breath sounds equal bilaterally. GASTROINTESTINAL: Abdomen soft, non-tender, nondistended. Hepatic and splenic margins not palpable. MUSCULOSKELETAL: No obvious deformities. No clubbing. No cyanosis. No edema. NEUROLOGICAL: Awake and alert. No obvious cranial nerve deficits. Motor grossly within normal limits. Normal speech. PSYCHIATRIC: Auditory hallucinations. Suicidal and homicidal ideation reported Data Data Last Documented VS Vital Signs Date Time Temp Pulse Resp B/P Pulse Ox O2 Delivery O2 Flow Rate FiO2 12/23/16 19:18 98.6 88 16 165/86 99 Vital signs reviewed Orders Complete Blood Count With Diff (12/23/16 21:00) Comprehensive Metabolic Panel (12/23/16 21:00) Psych Screen (12/23/16 21:00) Drug Screen, Random Urine (12/23/16 21:00) Alcohol (Ethanol) (12/23/16 21:00) Salicylates (Aspirin) (12/23/16 21:00) Tylenol (Acetaminophen) (12/23/16 21:00) Tetanus/Diphtheria Tox Adult (Tetanus/Di (12/23/16 21:00) Potassium Chloride (Kcl) (12/24/16 00:15) Labs Laboratory Tests Test 12/23/16 12/23/16 21:00 23:12 White Blood Count 7.9 TH/MM3 Red Blood Count 4.06 MIL/MM3 Hemoglobin 12.7 GM/DL Hematocrit 36.8 % Mean Corpuscular Volume 90.7 FL Mean Corpuscular Hemoglobin 31.4 PG Mean Corpuscular Hemoglobin 34.6 % Concent Red Cell Distribution Width 12.4 % Platelet Count 212 TH/MM3 Mean Platelet Volume 8.9 FL Neutrophils (%) (Auto) 72.3 % Lymphocytes (%) (Auto) 17.6 % Monocytes (%) (Auto) 8.7 % Eosinophils (%) (Auto) 0.8 % Basophils (%) (Auto) 0.6 % Neutrophils # (Auto) 5.7 TH/MM3 Lymphocytes # (Auto) 1.4 TH/MM3 Monocytes # (Auto) 0.7 TH/MM3 Eosinophils # (Auto) 0.1 TH/MM3 Basophils # (Auto) 0.0 TH/MM3 CBC Comment DIFF FINAL Differential Comment Salicylates Level LESS THAN 1.7 MG/DL Sodium Level 138 MEQ/L Potassium Level 2.9 MEQ/L Chloride Level 99 MEQ/L Carbon Dioxide Level 26.8 MEQ/L Anion Gap 12 MEQ/L Blood Urea Nitrogen 9 MG/DL Creatinine 0.61 MG/DL Estimat Glomerular Filtration 100 ML/MIN Rate Random Glucose 85 MG/DL Calcium Level 9.1 MG/DL Total Bilirubin 0.5 MG/DL Aspartate Amino Transf 13 U/L (AST/SGOT) Alanine Aminotransferase 33 U/L (ALT/SGPT) Alkaline Phosphatase 64 U/L Total Protein 7.2 GM/DL Albumin 4.0 GM/DL Acetaminophen Level LESS THAN 2.0 MCG/ML Ethyl Alcohol Level LESS THAN 3 MG/DL MDM Medical Decision Making Medical Screen Exam Complete: Yes Emergency Medical Condition: Yes Medical Record Reviewed: Yes Differential Diagnosis Altered mental status/psychosis due to infection/environmental exposure/ metabolic abnormality, polypharmacy, alcohol abuse/intoxication, illicit or prescribed drug abuse, malingering/secondary gain, non-organic psychiatric disease Narrative Course CBC & BMP Diagram 12/23/16 21:00 12/23/16 23:12 LFTs normal Tylenol aspirin and alcohol are all undetectable The patient received 60 mEq of potassium. There is no tendon involvement of the left wrist laceration. It was repaired by the BRYN. The history of present illness, ROS, physical exam, review of records and medical workup performed for today's visit have reasonably safely excluded organic etiologies for the patient's presenting complaint. We will continue to monitor the patient carefully in the ER until time of evaluation by the psychiatry service. We are available for any additional medical assistance if needed during the patient's ER course. Disposition per discretion of psychiatry is appreciated. Diagnosis Primary Impression: Depression Qualified Code: F32.9 - Depression, unspecified depression type Additional Impressions: Laceration of wrist Qualified Code: S61.512A - Laceration of wrist, left, initial encounter Suicidal ideation Jimmie Bernal MD Dec 24, 2016 00:22
[2016-12-24 03:25] VITALS: BP 168/95; PULSE 81; RESP 18; TEMP 98.5; O2SAT 99
[2016-12-24] MEDS ORDERED: ALUMINUM/MAGNESIUM/SIMETH 30 ML CUP PO PRN (04:00)
[2016-12-24] MEDS ORDERED: ACETAMINOPHEN 325 MG TAB PO PRN (04:00)
[2016-12-24] MEDS ORDERED: LORazepam 2 MG/ML VIAL IM PRN (04:00)
[2016-12-24] MEDS ORDERED: MAGNESIUM HYDROXIDE SUSP 30 ML CUP PO PRN (04:00)
[2016-12-24] MEDS: LORazepam 1 MG TAB PO PRN (04:27)
[2016-12-24] MEDS ORDERED: NICOTINE 21 MG/24 HR PATCH T-DERMAL SCH (09:00)
[2016-12-24] MEDS: hydrOXYzine HCL 25 MG TAB PO PRN (11:05)
--- NOTE | 2016-12-24 16:42 | HHI.HP ---
Provisional Diagnosis Admission Date Dec 24, 2016 at 02:14 [place] I. Major depression with psychotic features Certification of Person's Competence To Provide Express and Informed Consent I have personally examined Riri Rocha , a person being served at [facility] on, Dec 24, 2016 16:35. Express and informed consent means consent voluntarily given in writing, by a competent person, after sufficient explanation and disclosure of the subject matter involved to enable the person to make a knowing and willful decision without any element of force, fraud, deceit, duress, or other form of constraint or coercion. This person is 18 years of age or older, is not now known to be incompetent to consent to treatment with a guardian advocate, and does not have a health care surrogate or proxy currently making medical treatment decisions. I have found this person to be one of the following: [x] Competent to provide express and informed consent, as defined above, for voluntary admission to this facility and is competent to provide express and informed consent for treatment. He/she has the consistent capacity to make well reasoned, willful, and knowing decisions concerning his or her medical or mental health treatment. The person fully and consistently understands the purpose of the admission for examination/placement and is fully capable of personally exercising all rights assured [place] Incompetent to provide express and informed consent to voluntary admission, and this is incompetent to provide express and informed consent to treatment. The person must be transferred to involuntary status and a petition for a guardian advocate filed with the Circuit Court. [] Refusing to provide express and informed consent to voluntary admission but is competent to provide express and informed consent for treatment. The person must be discharged or transferred to involuntary status. Form shall be completed within 24 hours of a person's arrival at the receiving facility and filed in the clinical record of each person: 1. Admitted on a voluntary basis 2. Permitted to provide express and informed consent to his/her own treatment 3. Allowed to transfer from involuntary to voluntary status 4. Prior to permitting a person to consent to his or her own treatment after having been previously found incompetent to consent to treatment. History of Present Illness Capacity: Has Capacity HPI This is a 61-year-old female brought in by her family for depressive symptoms with command auditory hallucinations. She was Godinez acted for same and has limited insight and impaired judgment. When family members left for work, she began cutting herself in response to the command auditory hallucinations. Upon interview, the patient does admit to ongoing auditory hallucinations of a command nature. She states that she is unable to resist these communications. She acknowledges symptoms of depressed mood, anhedonia, social withdrawal, great anxiety, suicidal ideation, diminished energy, etc. Apparently her symptoms started several weeks ago and have grown progressively worse. There is no known trigger for her symptoms. Her has been attempting to take care of her but she has gotten progressively worse and he is no longer able to keep her safe. Patient does not have a history of alcohol or substance abuse. Review of Systems ROS Limitations: Clinical Condition Past Psych History Psychological trauma history Denied Violence risk - others (6 mos) Minimal Violence risk - self (6 mos) Significant Substance Abuse History Drugs/Alcohol past 12 months Denied Past Family Social History Coded Allergies: Codeine (Verified Allergy, Severe, VOMITING, 12/23/16) Active Scripts Fluoxetine (Prozac)10 Mg Cap10 Mg PO HS #30 CAP Prov:Jaleel Ward MD 11/23/16 Reported Medications Hydroxyzine HCl 25 Mg Tab25 Mg PO TID PRN (ANXIETY) Ref 0 12/19/16 Trazodone 50 Mg Tab50 Mg PO HS #30 TAB Ref 0 12/19/16 Discontinued Reported Medications [Estrovin] No Conflict Check 09/11/12 Discontinued Scripts Lorazepam (Ativan)1 Mg Tab1 Mg PO Q6H PRN (MODERATE TO SEVERE ANXIETY) #60 TAB Prov:Jaleel Ward MD 11/23/16 Current Medications Medications (Trade) Dose Ordered Sig/Reena Route Start Time Stop Time Status Last Admin (Ativan) 1 mg Q6H PRN PO 12/24/16 04:00 12/24/16 04:27 (Ativan Inj) 1 mg Q6H PRN IM 12/24/16 04:00 (Tylenol) 650 mg Q4H PRN PO 12/24/16 04:00 12/24/16 11:05 (Milk Of Magnesia Liq) 30 ml DAILY PRN PO 12/24/16 04:00 (Mag-Al Plus Susp Liq) 30 ml Q6H PRN PO 12/24/16 04:00 (Desyrel) 50 mg HS PO 12/24/16 21:00 (Atarax) 25 mg TID PRN PO 12/24/16 04:00 12/24/16 11:05 (SEROquel) 100 mg HS PO 12/24/16 21:00 Family History Significant for mood and anxiety disorders. Social History Lives with her and one son. Not currently working. Homemaker for many years. No alcohol or drugs. Patient's Strengths (min. 2) Verbal and has access to healthcare. Physical Exam GENERAL: SKIN: Warm and dry. HEAD: Normocephalic. EYES: No scleral icterus. No injection or drainage. NECK: Supple, trachea midline. No JVD or lymphadenopathy. CARDIOVASCULAR: Regular rate and rhythm without murmurs, gallops, or rubs. RESPIRATORY: Breath sounds equal bilaterally. No accessory muscle use. GASTROINTESTINAL: Abdomen soft, non-tender, nondistended. MUSCULOSKELETAL: No cyanosis, or edema. BACK: Nontender without obvious deformity. No CVA tenderness. Vital Signs Vital Signs Date Time Temp Pulse Resp B/P Pulse Ox O2 Delivery O2 Flow Rate FiO2 12/24/16 03:25 98.5 81 18 168/95 99 Mental Status Examination Speech: Unremarkable Orientation: x3 Memory: Unremarkable Thought Process: Thought Blocking Thought Content: Ideas of Reference Hallucination Type: Auditory Attention and Concentration: Easily Distracted Suicidal Ideation: Yes Previous Suicide Attempts: Yes Homicidal Ideation: No Previous Homicide Attempts: No Insight: Fair Judgment: Unrealistic Affect: Good, Anxious, Sad Mood: Sad Motor Activity: Normal gait Assessment & Plan Problem List: (1) Severe major depression, single episode, with psychotic features ICD Code: F32.3 Assessment & Plan Estimated LOS: Will consider antidepressant medication and antipsychotic medication to treat her current symptoms of depression and psychosis. Patient remains at high risk for self-harm and will be kept on close observation. She will also have complete metabolic profile and EKG due to the possible side effects of weight gain and cardiac conduction issues associated with her medications. She will be engaged in individual and group and family therapies. This physician has spoken to the patient's nurse regarding her current behavior. This physician will ask the social media campaign manager to obtain greater history from the patient's family/. Jaleel Ward MD Dec 24, 2016 16:42
[2016-12-24 18:00] VITALS: BP 127/72; PULSE 93; RESP 16; TEMP 98.8
[2016-12-24] MEDS: ARIPiprazole 5 MG TAB PO SCH (20:38)
[2016-12-24] MEDS: QUEtiapine FUMARATE 100 MG TAB PO SCH (20:38)
[2016-12-24] MEDS ORDERED: traZODone HCL 50 MG TAB PO SCH (21:00)
[2016-12-24] MEDS ORDERED: REMOVE OLD NICOTINE PATCH T-DERMAL SCH (21:00)
[2016-12-25 05:42] VITALS: BP 122/64; PULSE 87; RESP 16; TEMP 98.4
[2016-12-25] MEDS: ESCITALOPRAM OXALATE 10 MG TAB PO SCH (08:40)
[2016-12-25 10:27] LABS: HEMOGLOBIN A1a 1.4 %; HEMOGLOBIN A1b 1.4 %; HEMOGLOBIN Ao 85.6 %; HEMOGLOBIN P3 3.6 %
[2016-12-25 10:29] LABS: ANION GAP 9 MEQ/L (5-15); BICARBONATE 27.2 MEQ/L (21.0-32.0); BLOOD UREA NITROGEN 9 MG/DL (7-18); CHLORIDE 102 MEQ/L (98-107); GLOMERULAR FILTRATION RATE 87 ML/MIN (>89); HDL CHOLESTEROL 78.1 MG/DL (40.0-60.0); LDL CHOLESTEROL 182 MG/DL (0-99); POTASSIUM 4.1 MEQ/L (3.5-5.1); SODIUM (NA) 138 MEQ/L (136-145)
--- NOTE | 2016-12-25 14:49 | HHI.PYPN ---
Subjective Remarks Patient continues to report auditory hallucinations telling her to harm herself. She remains significantly depressed. Her insight and judgment are impaired with regard to her depression and suicidal behavior. Review of Systems ROS Limitations: Clinical Condition Objective Alert: Yes [place]: Person, Place, Date Mood: Depressed Affect: Restricted Memory Intact: Immediate, Recent, Remote Hallucinations: Auditory Delusions: Yes Delusion Type: Paranoid, Other Suicidal: Ideation Homicidal: Ideation Insight/Judgment Markedly impaired Labs Test 12/25/16 08:06 Sodium Level 138 MEQ/L Potassium Level 4.1 MEQ/L Chloride Level 102 MEQ/L Carbon Dioxide Level 27.2 MEQ/L Anion Gap 9 MEQ/L Blood Urea Nitrogen 9 MG/DL Creatinine 0.69 MG/DL Estimat Glomerular Filtration 87 ML/MIN Rate Random Glucose 96 MG/DL Hemoglobin A1c 5.6 % Calcium Level 9.1 MG/DL Triglycerides Level 64 MG/DL Cholesterol Level 273 MG/DL LDL Cholesterol 182 MG/DL HDL Cholesterol 78.1 MG/DL Cholesterol/HDL Ratio 3.49 RATIO Vitals/IOs Vital Signs Date Time Temp Pulse Resp B/P Pulse Ox O2 Delivery O2 Flow Rate FiO2 12/25/16 05:42 98.4 87 16 122/64 12/24/16 03:25 99 Assessment & Plan Problem List: (1) Severe major depression, single episode, with psychotic features ICD Code: F32.3 Assessment & Plan Estimated LOS: 5-7 days patient's medications are being manipulated and titrated to treat her ongoing depressive symptoms as well as her ongoing psychotic symptoms. At this point her judgment and insight are still very impaired. She remains on close observation. Medical workup continues. This physician spoke with the nurse regarding the patient's ongoing behavior, which is which are on. Waiting for information from family. Justification for Cont. Inpt. Suicidal. Patient likely to harm herself with lower level of care. Jaleel Ward MD Dec 25, 2016 14:49
[2016-12-25] MEDS: LORazepam 1 MG TAB PO PRN (15:13)
[2016-12-25 20:00] VITALS: BP 142/85; PULSE 101; RESP 16; TEMP 98.2
[2016-12-25] MEDS: ARIPiprazole 5 MG TAB PO SCH (20:17)
[2016-12-25] MEDS: QUEtiapine FUMARATE 100 MG TAB PO SCH (20:17)
[2016-12-26 06:07] VITALS: BP 109/67; PULSE 86; RESP 18; TEMP 97.8; O2SAT 99
[2016-12-26] MEDS: ESCITALOPRAM OXALATE 10 MG TAB PO SCH (08:47)
[2016-12-26] MEDS: LORazepam 1 MG TAB PO PRN (08:55)
[2016-12-26 18:31] VITALS: BP 141/83; PULSE 81; RESP 16; TEMP 99.6; O2SAT 98
[2016-12-26] MEDS: QUEtiapine FUMARATE 100 MG TAB PO SCH (21:02)
[2016-12-26] MEDS: ARIPiprazole 5 MG TAB PO SCH (21:02)
[2016-12-27 06:27] VITALS: BP 139/65; PULSE 76; RESP 16; TEMP 98.5; O2SAT 97
[2016-12-27] MEDS: ESCITALOPRAM OXALATE 10 MG TAB PO SCH (07:56)
--- NOTE | 2016-12-27 11:57 | HHI.PYPN ---
Subjective Remarks This is the progress note for 12/26/2016. Patient continues to be depressed with delusional thinking. She remains complaining of auditory hallucinations of a command nature. She is mildly improved on her current medication regimen but continues to need treatment to prevent decompensation. Review of Systems ROS Limitations: Clinical Condition Objective Alert: Yes [place]: Person, Place, Date Mood: Depressed Affect: Restricted Memory Intact: Immediate, Recent, Remote Hallucinations: Auditory Delusions: Yes Delusion Type: Paranoid, Other Suicidal: Ideation Homicidal: Ideation Insight/Judgment Impaired Vitals/IOs Vital Signs Date Time Temp Pulse Resp B/P Pulse Ox O2 Delivery O2 Flow Rate FiO2 12/27/16 06:27 98.5 76 16 139/65 97 Assessment & Plan Problem List: (1) Severe major depression, single episode, with psychotic features ICD Code: F32.3 Assessment & Plan Estimated LOS: 5 days patient continues to be markedly depressed, with paranoid delusions and suicidal thinking. She remains at significant risk for self- harm. Medications are being titrated as tolerated. Justification for Cont. Inpt. Psychotic and dangerous to self. Jaleel Ward MD Dec 27, 2016 11:57
--- NOTE | 2016-12-27 12:00 | HHI.PYPN ---
Subjective Remarks Patient remains depressed and paranoid but she is less energetic about the delusional thinking and auditory hallucinations. She appears to be responding to the Abilify at 5 mg per day and the Lexapro at 10 mg per day. However, she still has suicidal thoughts. Review of Systems ROS Limitations: Clinical Condition Objective Alert: Yes [place]: Person, Place, Date Mood: Depressed Affect: Restricted Memory Intact: Immediate, Recent, Remote Hallucinations: Auditory Delusions: Yes Delusion Type: Paranoid, Other Suicidal: Ideation Homicidal: Ideation Insight/Judgment Impaired Vitals/IOs Vital Signs Date Time Temp Pulse Resp B/P Pulse Ox O2 Delivery O2 Flow Rate FiO2 12/27/16 06:27 98.5 76 16 139/65 97 Assessment & Plan Problem List: (1) Severe major depression, single episode, with psychotic features ICD Code: F32.3 Assessment & Plan Estimated LOS: 4 days patient remains depressed, psychotic and suicidal. She is beginning to respond to medications but needs more time. Justification for Cont. Inpt. Psychotic and dangerous to self. Jaleel Ward MD Dec 27, 2016 12:00
[2016-12-27 19:20] VITALS: BP 170/88; PULSE 82; RESP 18; TEMP 98.5; O2SAT 97
[2016-12-27] MEDS: ARIPiprazole 5 MG TAB PO SCH (21:31)
[2016-12-27] MEDS: QUEtiapine FUMARATE 100 MG TAB PO SCH (21:31)
[2016-12-28 05:21] VITALS: BP 120/70; PULSE 79; RESP 16; TEMP 98.2; O2SAT 99
[2016-12-28] MEDS: ESCITALOPRAM OXALATE 10 MG TAB PO SCH (08:07)
--- NOTE | 2016-12-28 11:08 | HHI.PYPN ---
Subjective Remarks Patient remains psychotic with paranoid ideation. She states "they are listening". She complains of not sleeping despite medications being given for sleep. This physician will reevaluate and I psychotic medicine as well. Review of Systems ROS Limitations: Clinical Condition Objective Alert: Yes [place]: Person, Place, Date Mood: Depressed Affect: Restricted Memory Intact: Immediate, Recent, Remote Hallucinations: Auditory Delusions: Yes Delusion Type: Paranoid, Other Suicidal: Ideation Homicidal: Ideation Insight/Judgment Impaired Vitals/IOs Vital Signs Date Time Temp Pulse Resp B/P Pulse Ox O2 Delivery O2 Flow Rate FiO2 12/28/16 05:21 98.2 79 16 120/70 99 Assessment & Plan Problem List: (1) Severe major depression, single episode, with psychotic features ICD Code: F32.3 Assessment & Plan Estimated LOS: 5 days patient remains very slow to respond to antipsychotic therapy. Justification for Cont. Inpt. Paranoid delusions and unable to care for self. Jaleel Ward MD Dec 28, 2016 11:08
[2016-12-28 18:42] VITALS: BP 162/81; PULSE 100; RESP 16; TEMP 98.6; O2SAT 97
[2016-12-28 19:00] VITALS: BP 162/81; PULSE 100; RESP 16; TEMP 98.6; O2SAT 97
[2016-12-28] MEDS: QUEtiapine FUMARATE 100 MG TAB PO SCH (21:18)
[2016-12-28] MEDS: ARIPiprazole 10 MG TAB PO SCH (21:18)
[2016-12-28] MEDS: LORazepam 1 MG TAB PO PRN (21:19)
[2016-12-29 05:15] VITALS: BP 124/69; PULSE 70; RESP 16; TEMP 98.1; O2SAT 98
[2016-12-29] MEDS: ESCITALOPRAM OXALATE 10 MG TAB PO SCH (09:42)
[2016-12-29] MEDS: GENTAMICIN SULFATE 0.1% OINT 15 GM TUBE TOPICAL SCH ×2 (09:42→22:01)
[2016-12-29] MEDS: LORazepam 1 MG TAB PO PRN ×2 (09:50→23:44)
--- NOTE | 2016-12-29 15:39 | HHI.PYPN ---
Subjective Remarks Pt seen and discussed with staff. She reports that AH persist but are decreased today and she is less anxious. No behavioral problems on unit. She denies medication side effects. No SI/HI Objective Alert: Yes [place]: Person, Place, Date Mood: Calm Affect: Restricted Memory Intact: Immediate, Recent, Remote Hallucinations: Auditory Delusions: Yes Delusion Type: Paranoid Suicidal: Ideation Homicidal: Ideation Insight/Judgment poor Vitals/IOs Vital Signs Date Time Temp Pulse Resp B/P Pulse Ox O2 Delivery O2 Flow Rate FiO2 12/29/16 05:15 98.1 70 16 124/69 98 Assessment & Plan Problem List: (1) Severe major depression, single episode, with psychotic features ICD Code: F32.3 Assessment & Plan Pt improving. Continue current treatment plan. Estimated LOS: days Justification for Cont. Inpt. impairments in reality construction Heather Bowie MD Dec 29, 2016 15:39
[2016-12-29 18:00] VITALS: BP 129/77; PULSE 73; RESP 16; TEMP 98; O2SAT 97
[2016-12-29] MEDS: hydrOXYzine HCL 25 MG TAB PO PRN (21:56)
[2016-12-29] MEDS: ARIPiprazole 10 MG TAB PO SCH (21:56)
[2016-12-29] MEDS: QUEtiapine FUMARATE 100 MG TAB PO SCH (21:56)
[2016-12-30 06:20] VITALS: BP 99/57; PULSE 83; RESP 18; TEMP 98.2; O2SAT 96
[2016-12-30] MEDS: ESCITALOPRAM OXALATE 10 MG TAB PO SCH (08:33)
[2016-12-30] MEDS: GENTAMICIN SULFATE 0.1% OINT 15 GM TUBE TOPICAL SCH ×2 (08:34→21:09)
--- NOTE | 2016-12-30 13:48 | HHI.PYPN ---
Subjective Remarks Pt seen and discussed with staff. She reports that sleep was difficult last night secondary to AH. She is more paranoid today and c/o of thought insertion. No aggression or disruptive behavior. Objective Alert: Yes [place]: Person, Place, Date Mood: Anxious, Calm Affect: Restricted Memory Intact: Immediate, Recent, Remote Hallucinations: Auditory Delusions: Yes Delusion Type: Paranoid, Other (thought insertion) Suicidal: Ideation Homicidal: Ideation Insight/Judgment limited Vitals/IOs Vital Signs Date Time Temp Pulse Resp B/P Pulse Ox O2 Delivery O2 Flow Rate FiO2 12/30/16 06:20 98.2 83 18 99/57 96 Intake and Output 12/29/16 12/29/16 12/30/16 08:00 16:00 00:00 Intake Total 360 ml 360 ml Balance 360 ml 360 ml Assessment & Plan Problem List: (1) Severe major depression, single episode, with psychotic features ICD Code: F32.3 Assessment & Plan Titrate Abilify to target psychosis. Continue hospitalization for safety. Estimated LOS: days Justification for Cont. Inpt. impairments in reality construction Heather Bowie MD Dec 30, 2016 13:48
[2016-12-30 18:00] VITALS: BP 140/75; PULSE 84; RESP 16; TEMP 98.3; O2SAT 100
[2016-12-30] MEDS: QUEtiapine FUMARATE 100 MG TAB PO SCH (21:09)
[2016-12-30] MEDS: hydrOXYzine HCL 25 MG TAB PO PRN (21:09)
[2016-12-30] MEDS: ARIPiprazole 10 MG TAB PO SCH (21:09)
[2016-12-30] MEDS: LORazepam 1 MG TAB PO PRN (21:11)
[2016-12-31 05:20] VITALS: BP 112/59; PULSE 82; RESP 18; TEMP 97.7; O2SAT 97
[2016-12-31] MEDS: GENTAMICIN SULFATE 0.1% OINT 15 GM TUBE TOPICAL SCH ×2 (08:28→21:38)
[2016-12-31] MEDS: ESCITALOPRAM OXALATE 10 MG TAB PO SCH (08:28)
--- NOTE | 2016-12-31 13:58 | HHI.PYPN ---
Subjective Remarks Continues to show evidence of depression with psychoses. Would like to have sutures removed from where she cut her arm. Needs more time on current medicines. Review of Systems ROS Limitations: Clinical Condition Objective Alert: Yes [place]: Person, Place, Date Mood: Anxious, Calm Affect: Restricted Memory Intact: Immediate, Recent, Remote Hallucinations: Auditory Delusions: Yes Delusion Type: Paranoid, Other (thought insertion) Suicidal: Ideation Homicidal: Ideation Insight/Judgment Impaired Vitals/IOs Vital Signs Date Time Temp Pulse Resp B/P Pulse Ox O2 Delivery O2 Flow Rate FiO2 12/31/16 05:20 97.7 82 18 112/59 97 Intake and Output 12/30/16 12/30/16 12/31/16 08:00 16:00 00:00 Intake Total 240 ml Balance 240 ml Assessment & Plan Problem List: (1) Severe major depression, single episode, with psychotic features ICD Code: F32.3 Assessment & Plan Estimated LOS: 5 days needs to continue on current antipsychotic and antidepressant medication. Justification for Cont. Inpt. Likely to decompensate at lower level of care. Jaleel Ward MD December 31, 2016 13:58
[2016-12-31] MEDS: ARIPiprazole 10 MG TAB PO SCH (21:37)
[2016-12-31] MEDS: QUEtiapine FUMARATE 100 MG TAB PO SCH (21:38)
[2016-12-31 21:59] VITALS: BP 123/70; PULSE 85; RESP 18; TEMP 98.7; O2SAT 98
[2016-12-31] MEDS: LORazepam 1 MG TAB PO PRN (22:14)
[2017-01-01 05:47] VITALS: BP 113/65; PULSE 71; RESP 18; TEMP 98.3; O2SAT 99
[2017-01-01] MEDS: GENTAMICIN SULFATE 0.1% OINT 15 GM TUBE TOPICAL SCH ×2 (09:00→21:20)
[2017-01-01] MEDS: ESCITALOPRAM OXALATE 10 MG TAB PO SCH (09:14)
--- NOTE | 2017-01-01 13:46 | HHI.PYPN ---
Subjective Remarks Continues to minimize cutting herself and the extent of her psychosis. He has very limited insight and impaired judgment. Review of Systems ROS Limitations: Clinical Condition Objective Alert: Yes [place]: Person, Place, Date Mood: Anxious, Calm Affect: Restricted Memory Intact: Immediate, Recent, Remote Hallucinations: Auditory Delusions: Yes Delusion Type: Paranoid, Other (thought insertion) Suicidal: Ideation Homicidal: Ideation Insight/Judgment Impaired Vitals/IOs Vital Signs Date Time Temp Pulse Resp B/P Pulse Ox O2 Delivery O2 Flow Rate FiO2 01/01/17 05:47 98.3 71 18 113/65 99 Assessment & Plan Problem List: (1) Severe major depression, single episode, with psychotic features ICD Code: F32.3 Assessment & Plan Estimated LOS: 3 days needs more time to stabilize on medications. Justification for Cont. Inpt. Likely to decompensate at lower level of care. Jaleel Ward MD January 01, 2017 13:46
[2017-01-01 16:54] VITALS: BP 106/69; PULSE 69; RESP 18; TEMP 98.2; O2SAT 96
[2017-01-01] MEDS: ARIPiprazole 10 MG TAB PO SCH (21:20)
[2017-01-01] MEDS: QUEtiapine FUMARATE 100 MG TAB PO SCH (21:20)
[2017-01-01] MEDS: LORazepam 1 MG TAB PO PRN (21:42)
[2017-01-02 05:50] VITALS: BP 125/59; PULSE 71; RESP 16; TEMP 96.2; O2SAT 96
[2017-01-02] MEDS: GENTAMICIN SULFATE 0.1% OINT 15 GM TUBE TOPICAL SCH ×2 (08:24→21:23)
[2017-01-02] MEDS: ESCITALOPRAM OXALATE 10 MG TAB PO SCH (08:45)
--- NOTE | 2017-01-02 11:38 | HHI.PYPN ---
Subjective Remarks Remains paranoid as the result of delusional and bizarre thinking. Otherwise pleasant and cooperative. Will ask director of casework services to have determine patient's stability to return home. Review of Systems ROS Limitations: Clinical Condition Objective Alert: Yes [place]: Person, Place, Date Mood: Anxious, Calm Affect: Restricted Memory Intact: Immediate, Recent, Remote Hallucinations: Auditory Delusions: Yes Delusion Type: Paranoid, Other (thought insertion) Suicidal: Ideation Homicidal: Ideation Insight/Judgment Impaired. Vitals/IOs Vital Signs Date Time Temp Pulse Resp B/P Pulse Ox O2 Delivery O2 Flow Rate FiO2 01/02/17 05:50 96.2 71 16 125/59 96 Assessment & Plan Problem List: (1) Severe major depression, single episode, with psychotic features ICD Code: F32.3 Assessment & Plan Estimated LOS: 3 days will continue with current antipsychotic medication and antidepressant medicine. Anticipate patient's to come in and evaluate patient's condition for his ability to care for her. Justification for Cont. Inpt. Patient may decompensate at lower level of care. Jaleel Ward MD January 02, 2017 11:38
[2017-01-02 17:58] VITALS: BP 139/75; PULSE 79; RESP 16; TEMP 97.1; O2SAT 100
[2017-01-02] MEDS: QUEtiapine FUMARATE 100 MG TAB PO SCH (21:23)
[2017-01-02] MEDS: ARIPiprazole 10 MG TAB PO SCH (21:23)
[2017-01-02] MEDS: LORazepam 1 MG TAB PO PRN (21:27)
[2017-01-03 06:09] VITALS: BP 140/73; PULSE 66; RESP 16; TEMP 97.9; O2SAT 100
[2017-01-03] MEDS: ESCITALOPRAM OXALATE 10 MG TAB PO SCH (08:28)
[2017-01-03] MEDS: GENTAMICIN SULFATE 0.1% OINT 15 GM TUBE TOPICAL SCH (08:28)
--- NOTE | 2017-01-03 09:20 | HHI.DS ---
Psychiatry Discharge Summary Inpatient Psychiatric care?: Yes Advance Directive: No Reason Not Provided: declined Mental Health AdvanceDirective: No (declined) Health Care Proxy: No Admission Admission Date Dec 24, 2016 at 02:14 Admission Diagnosis: (1) Severe major depression, single episode, with psychotic features ICD Code: F32.3 Brief History This is a 61-year-old female brought in by her family for depressive symptoms with command auditory hallucinations. She was Godinez acted for same and has limited insight and impaired judgment. When family members left for work, she began cutting herself in response to the command auditory hallucinations. Upon interview, the patient does admit to ongoing auditory hallucinations of a command nature. She states that she is unable to resist these communications. She acknowledges symptoms of depressed mood, anhedonia, social withdrawal, great anxiety, suicidal ideation, diminished energy, etc. Apparently her symptoms started several weeks ago and have grown progressively worse. There is no known trigger for her symptoms. Her has been attempting to take care of her but she has gotten progressively worse and he is no longer able to keep her safe. Patient does not have a history of alcohol or substance abuse. Tobacco Use In Past 30 Days: No Tobacco Past 30 Days Alcohol Use: Never Hospital Course Patient presented to this hospitalization with psychotic symptoms including paranoid ideation and depressive symptoms. She had cut herself but this healed appropriately. She participated in individual and group therapies. She was compliant with her medicines. No procedures were performed. Results Blood Pressure 140 / 73 Vital Signs Date Time Temp Pulse Resp B/P Pulse Ox O2 Delivery O2 Flow Rate FiO2 01/03/17 06:09 97.9 66 16 140/73 100 None pending Summary of Procedures None Pending results at discharge: No Medications # of Antipsychotic meds at D/C: 1 Appropriate >1 Antipsych meds?: 1 Approp Antipsych med options 1 - Minimum of three failed multiple trials of monotherapy. 2 - Documented plan to taper to monotherapy due to previous use of multiple meds OR cross-taper in progress at D/C. 3 - Documentation of augmentation of Clozapine. 4 - Justification other than those listed in allowable values 1-3, document here : Discharge Discharge Date: January 03, 2017 Discharge Diagnosis: (1) Severe major depression, single episode, with psychotic features Diagnosis: Principal ICD Code: F32.3 Mental Status Exam at Disch At the time of discharge the patient described no suicidal or homicidal ideation , plan or intent. She continued to have some paranoid ideation but was very functional on this unit. She was very pleasant and cooperative. Her cognition was intact. She verbally contracted for safety. She stated that she was willing to continue to take her medications and that her was willing to take care of her. Pt Condition on Discharge: Stable Discharge Disposition: Discharge Home Discharge Instructions Diet Instructions: As Tolerated, No Restrictions Activities you can perform: Regular-No Restrictions Discharge Time <= 30 minutes Discharge/Advance Care Plan Health Problems: (1) Severe major depression, single episode, with psychotic features Goals to promote your health * To prevent worsening of your condition and complications * To maintain your health at the optimal level Directions to meet your goals Take your medications as prescribed Follow your dietary instruction Follow activity as directed Keep your appointments as scheduled Take your immunizations and boosters as scheduled If your symptoms worsen call your PCP, if no PCP go to Urgent Care Center or Emergency Room For 25/03 questions related to your inpatient stay or results of tests pending at discharge, please contact Dr. Jaleel Ward at Smoking is Dangerous to Your Health. Avoid second hand smoking Jaleel Ward MD January 03, 2017 09:20
[2017-01-03] MEDS ORDERED: ESCI10TA PO (09:23)
[2017-01-03] MEDS ORDERED: QUET1TAB8 PO (09:23)
== END 2017-01-03 18:05 | disposition home or self-care (01) | DRG 885 ==
LOC: NEPE 19:16 → NEDA 12-24 02:14 → H260 12-24 03:20
PROVIDERS: ADMIT Psychiatry & Neurology Psychiatry; ATTEND Psychiatry & Neurology Psychiatry
PROC: 0HQEXZZ Repair Left Lower Arm Skin, External Approach (ICD-10-PCS; principal; 2016-12-24)
DX: F32.3 Major depressive disorder, single episode, severe with psychotic features (principal); S51.812A Laceration without foreign body of left forearm, initial encounter; X78.8XXA Intentional self-harm by other sharp object, initial encounter; Y92.009 Unspecified place in unspecified non-institutional (private) residence as the place of occurrence of the external cause
CPT/HCPCS: 12001; 80048; 80053; 80061; 80307; 83036; 85025; 90471; 90714